=== PATIENT | female | born 1945 | race Caucasian/White ===

== ENCOUNTER 2017-08-02 07:09 | Day surgery (SDC) | payer OTHER ==
[~2017-08-02 07:09] MED LIST: ULTRACET PO
== END 2017-08-02 13:50 | disposition home or self-care (01) ==
LOC: AMB-ENDOS 07:09
DX: D12.2 Benign neoplasm of ascending colon (principal); K57.30 Diverticulosis of large intestine without perforation or abscess without bleeding

== ENCOUNTER 2018-01-01 11:09 | Outpatient (CLI) | payer OTHER | END 2018-01-01 11:18 | disposition home or self-care (01) | LOC: NUCLEAR 11:09 | DX: M89.8X0 Other specified disorders of bone, multiple sites (principal); M81.0 Age-related osteoporosis without current pathological fracture ==

== ENCOUNTER 2020-11-04 12:47 | Outpatient (CLI) | payer OTHER | END 2020-11-04 12:57 | disposition home or self-care (01) | LOC: MAMO-SONO 12:47 | PROVIDERS: ATTEND Obstetrics & Gynecology Gynecology | DX: R92.0 Mammographic microcalcification found on diagnostic imaging of breast (principal); N64.59 Other signs and symptoms in breast; Z12.31 Encounter for screening mammogram for malignant neoplasm of breast ==

== ENCOUNTER 2020-11-15 09:50 | Outpatient (CLI) | payer OTHER | END 2020-11-15 09:56 | disposition home or self-care (01) | LOC: TOM 09:50 | PROVIDERS: ATTEND Internal Medicine Hematology & Oncology | DX: K59.09 Other constipation (principal); K57.90 Diverticulosis of intestine, part unspecified, without perforation or abscess without bleeding; I70.8 Atherosclerosis of other arteries; Z12.11 Encounter for screening for malignant neoplasm of colon | CPT/HCPCS: 71260; 74177; Q9965 ==

== ENCOUNTER → 2020-11-22 15:00 | Outpatient (CLI) | payer OTHER | END | disposition home or self-care (01) | LOC: PPH VACUNA 15:00 | DX: Z23 Encounter for immunization (principal) ==

== ENCOUNTER 2021-09-27 07:45 | Inpatient (IN) | payer OTHER ==
[~2021-09-27] VITALS: Ht 154.9 cm; Wt 86.2 kg
[2021-09-27] MEDS ORDERED: SYNTHROID125 MCG PO (08:57)
== END 2021-09-29 13:19 | disposition home or self-care (01) | DRG 740 ==
LOC: O/R 09-28 06:22 → OB/GYN 09-28 06:22 → SURH 09-28 07:45 → OB/GYN 09-28 14:12 → SURH 09-28 15:00 → OB/GYN 09-29 13:19
PROVIDERS: Obstetrics & Gynecology; ADMIT Surgery; ATTEND Surgery
PROC: 0UT04ZZ Resection of Right Ovary, Percutaneous Endoscopic Approach (ICD-10-PCS; 2021-09-28)
PROC: 0WUF4JZ Supplement Abdominal Wall with Synthetic Substitute, Percutaneous Endoscopic Approach (ICD-10-PCS; 2021-09-28)
PROC: 0UT94ZZ Resection of Uterus, Percutaneous Endoscopic Approach (ICD-10-PCS; principal; 2021-09-28 15:00)
PROC: 0UT54ZZ Resection of Right Fallopian Tube, Percutaneous Endoscopic Approach (ICD-10-PCS; 2021-09-28 15:00)
DX: C54.1 Malignant neoplasm of endometrium (principal); K43.0 Incisional hernia with obstruction, without gangrene; Z20.822 Contact with and (suspected) exposure to COVID-19

== ENCOUNTER 2022-09-28 13:18 | Outpatient (CLI) | payer OTHER ==
[~2022-09-28 13:18] MED LIST changes: +SYNTHROID125 MCG PO
== END 2022-09-28 13:21 | disposition home or self-care (01) ==
LOC: NUCLEAR 13:18
PROVIDERS: ATTEND Internal Medicine Cardiovascular Disease
DX: M81.0 Age-related osteoporosis without current pathological fracture (principal); E55.9 Vitamin D deficiency, unspecified